=== PATIENT | male | born 1945 | race Caucasian/White ===

== ENCOUNTER → 2020-12-28 14:46 | Outpatient (CLI) | payer OTHER, SELFPAY ==
--- NOTE | 2020-12-28 | COLBX_PTH ---
PATIENT: JAMISON YBARRA LOC: [facility] U#:[id number] AGE/SX: 80/M ROOM: RE12/28/[address]: Dr. Robert Rust MD : 1945 BED: DIS: SPEC #: [id number] RECD: 12/28/20 12:01 STATUS: VELIA POSADASEmil #: [id number] PORTIA: 12/28/20 00:[address]: Robert Rust DEPT: SURGICAL PATHOLOGY RECD BY: Tulio Rizvi Tissues: A - Descending colon B - COLON BIOPSY C - Rectum, NOS Procedures: Surgery Specimen Level IV HEADER OPERATION: Colonoscopy PRE-OP DIAGNOSIS: Colon CA TISSUE SUBMITTED: A ? Descending colon polyp, B ? Colon polyp at 25 cm, C ? Rectal polyps MICROSCOPIC DIAGNOSIS A. Descending colon polyp, biopsy: Fragment of benign colonic mucosa. See comment. B. Colonic polyp at 25 cm, biopsy: Fragments of tubular adenoma. C. Rectal polyps, biopsy: Fragments of hyperplastic polyp. AM:brannon 12/29/2020 COMMENT A. Neither hyperplastic nor adenomatous change is identified. MICROSCOPIC DESCRIPTION Slides are reviewed. GROSS DESCRIPTION A - Received in fixative is one container labeled with the patient's name and designated descending colon polyp. The specimen consists of one irregular fragment of light garces soft tissue that measures 0.6 x 0.3 x 0.1 cm. The specimen is totally submitted in one cassette. B - Received in fixative is one container labeled with the patient's name and designated colon polyp at 25 cm. The specimen consists of a garces-pink polyp measuring 0.6 x 0.5 x 0.3 cm. C - Received in fixative is one container labeled with the patient's name and designated rectal polyps. The specimen consists of multiple irregular fragments of light garces soft tissue mixed with fecal material that in aggregate measure 1 x 0.5 x 0.2 cm. The specimen is totally submitted in one cassette. / SJ:brannon 12/28/20 TC:5 [facility]: [id number] [id number]
== END ==
PROVIDERS: Referring Provider Surgery; Visit Provider Surgery
DX: Z85.038 Personal history of other malignant neoplasm of large intestine (principal)
CPT/HCPCS: 88305